=== PATIENT | male | born 1955 | race Caucasian/White ===

== ENCOUNTER 2019-10-09 09:08 | Emergency (ER) | payer MEDICARE, OTHER | END 2019-10-09 10:27 | disposition home or self-care (01) | LOC: MADERS 09:08 | DX: J01.90 Acute sinusitis, unspecified (principal) | CPT/HCPCS: 99283 ==

== ENCOUNTER 2020-05-23 07:37 | Emergency (ER) | payer MEDICARE, OTHER, MEDICAID ==
[2020-05-23] MEDS ORDERED: Famotidine In NaCl 20 mg/50 ml Premix Bag ONE (07:51)
[2020-05-23] MEDS ORDERED: EPINEPHrine 1 MG/ML AMP ONE (07:51)
[2020-05-23] MEDS ORDERED: methylPREDNISolone Sod Succ/PF 125 MG/2 ML VIAL ONE (07:51)
== END 2020-05-23 10:36 | disposition home or self-care (01) ==
LOC: MADERS 07:37
DX: T78.40XA Allergy, unspecified, initial encounter (principal); E78.5 Hyperlipidemia, unspecified; E78.00 Pure hypercholesterolemia, unspecified; I10 Essential (primary) hypertension; F17.210 Nicotine dependence, cigarettes, uncomplicated; Z79.899 Other long term (current) drug therapy; Z79.82 Long term (current) use of aspirin
CPT/HCPCS: 96365; 96372; 96375; J0171; J2930

== ENCOUNTER 2022-07-09 08:22 | Emergency (ER) | payer MEDICARE, OTHER ==
[2022-07-09] MEDS ORDERED: Ketorolac Tromethamine 60 MG/2 ML VIAL ONE (09:14)
[2022-07-09] MEDS ORDERED: HYDROcodone/Acetaminophen 5/325 mg Tablet ONE (10:26)
== END 2022-07-09 10:38 | disposition home or self-care (01) ==
LOC: MADERS 08:22
DX: S20.214A Contusion of middle front wall of thorax, initial encounter (principal); I10 Essential (primary) hypertension; E78.00 Pure hypercholesterolemia, unspecified; F17.210 Nicotine dependence, cigarettes, uncomplicated; W18.09XA Striking against other object with subsequent fall, initial encounter; Z85.46 Personal history of malignant neoplasm of prostate; Z79.82 Long term (current) use of aspirin
CPT/HCPCS: 71046; 96372; J1885